=== PATIENT | female | born 1990 | race Two or more races ===

== ENCOUNTER 2024-12-14 15:35 | Emergency (ER) | payer MEDICAID, SELFPAY ==
[2024-12-14 15:36] VITALS: BMI 30.1
[2024-12-14 16:00] VITALS: BP 145/85; PULSE 85; RESP 18; TEMP 37.3; O2SAT 99
--- NOTE | 2024-12-14 16:02 | XR_ITS ---
Examination: Abdomen sonogram, Limited Date and time of exam: December 14, 2024 1614 hrs. Indications: Left upper abdominal pain beginning one week ago Technique: Real-time beavers scale transabdominal sonographic images of the upper abdomen obtained. Findings: 3 mm gallstone Gallbladder sludge, normal gallbladder wall 0.2 cm Normal common bile duct 0.2 cm Pancreatic head 2.2 cm Liver 15.4 cm no liver lesions. Normal hepatopedal portal venous flow Patent IVC Impression: Cholelithiasis, negative for cholecystitis
[2024-12-14 16:41] LABS: Collection Type, Urine Clean Catch
[2024-12-14 17:03] LABS: Bilirubin,Urine Negative (Negative); Blood,Urine Negative (Negative); Clarity,Urine Clear (Clear/Hazy); Color,Urine Lt-Yellow (Lt Yel-Yel); Glucose, Urine Negative (Negative); Ketones,Urine Negative (Negative); Leukocyte Esterase,Urine Negative (Negative); Nitrite,Urine Negative (Negative); PH,Urine 6.5 (5.0-7.0); Protein,Urine Negative (Neg - Trace); RBC,Urine 1 /hpf (0-3); Specific Gravity,Urine 1.024 (1.001-1.035); Squamous Epithelial Cell,Urine 1 /hpf (0-5); Urobilinogen,Urine Negative mg/dL (0.0-1.0); WBC,Urine < 1 /hpf (0-5)
[2024-12-14 17:14] LABS: HCG Qualitative,Urine Negative
[2024-12-14 17:29] LABS: Basophils # (Auto) 0.0 Thou/mm3 (0.0-0.2); Basophils % (Auto) 1 % (0-2.5); Eosinophils # (Auto) 0.1 Thou/mm3 (0.0-0.5); Eosinophils % (Auto) 2 % (0-10); Hematocrit 38.0 % (36.0-46.0); Hemoglobin 12.6 g/dL (12.0-16.0); Immature Granulocytes Auto 0.02 Thou/mm3 (0.00-0.00); Lymphocytes # (Auto) 2.1 Thou/mm3 (1.0-4.8); Lymphocytes % (Auto) 30 % (10-50); Mean Corpuscular HGB Conc 33.2 g/dl (31.0-37.0); Mean Corpuscular Hemoglobin 31.1 pg (25.0-35.0); Mean Corpuscular Volume 94 fL (80-100); Monocytes # (Auto) 0.4 Thou/mm3 (0.0-0.8); Monocytes % (Auto) 5 % (0-12); Neutrophils # (Auto) 4.3 Thou/mm3 (1.8-7.7); Neutrophils % (Auto) 62 % (37-80); Nucleated Red Blood Cell # 0.00 Thou/mm3 (0.00-0.00); Nucleated Red Blood Cell % 0 /100 WBC (0); Platelet Count 174 Thou/mm3 (140-440); RDW Standard Deviation 46.1 fL (36.4-46.3); Red Blood Count 4.05 Miln/mm3 (4.00-5.20); White Blood Count 6.8 Thou/mm3 (3.6-11.0)
[2024-12-14 17:45] LABS: Alanine Aminotransferase < 7 U/L (10-49); Albumin, Serum 4.3 gm/dL (3.5-5.0); Albumin/Globulin Ratio 1.9 (1.2-2.2); Alkaline Phosphatase 34 U/L (46-116); Anion Gap 10 (7-16); Aspartate Amino Transferase 10 U/L (0-34); BUN/Creatinine Ratio 13 Ratio (12-20); Bilirubin,Total 0.3 mg/dL (0.3-1.2); Blood Urea Nitrogen 10 mg/dL (9-23); Calcium 9.9 mg/dL (8.3-10.6); Calcium (Corrected) 9.9 mg/dL (8.5-10.1); Carbon Dioxide 24.2 mMol/L (20.0-31.0); Chloride 109 mMol/L (98-107); Creatinine (Component) 0.8 mg/dL (0.6-1.3); Estimated Creatinine Clearance 95.6 mL/min (>60); Globulin 2.3 gm/dL (2.3-3.5); Glucose 94 mg/dL (74-106); Lipase 33 U/L (12-53); Osmolality,Calculated 283 (275-295); Potassium 4.1 mMol/L (3.4-5.1); Sodium 143 mMol/L (136-145); Total Protein 6.6 gm/dL (5.7-8.2); eGFR > 60 See Note
--- NOTE | 2024-12-14 18:11 | EDNOTE_ITS ---
ED Abdominal Pain RME/HPI General Chief Complaint: Abdominal Pain Stated complaint: STOMACH INFLAMATION FOR 4 DAYS Time seen by provider: 12/14/24 15:39 Arrival date/time: 12/14/24 15:35 This is a case of 34-year-old female with no medical history came in in the emergency room due to upper abdominal pain on and off for 3 days associated with bloatedness nausea vomiting worsening of the symptoms this patient decided to sought consult here in the emergency room denies any constipation diarrhea or blood in her stool Limitations: no limitations Related Data Previous Rx's ?Medication ?Instructions ?Recorded famotidine 20 mg tablet 20 mg PO BID #60 tabs hydrocodone 5 mg-acetaminophen 325 1 tab PO Q6H PRN pa in #15 tabs 12/14/24 mg tablet ondansetron 4 mg disintegrating 4 mg PO Q8H PRN nausea and 12/14/24 tablet vomiting #20 tabs Allergies Allergy/AdvReac Type Severity Reaction Status Date / Time Penicillins Allergy Severe Fever Verified 12/14/24 15:39 Review of Systems Review of Systems Systems Reviewed: All systems reviewed, normal except as documented Constitutional Constitutional: Reports system reviewed and no additional complaints, except as documented, Reports as per HPI, Denies chills and Denies fever(s) Cardiovascular Cardiovascular: Reports system reviewed and no additional complaints, except as documented, Reports as per HPI, Denies chest pain and Denies dyspnea Respiratory Respiratory: Reports system reviewed and no additional complaints, except as documented, Reports as per HPI and Denies dyspnea Gastrointestinal Gastrointestinal: Reports system reviewed and no additional complaints, except as documented, Reports as per HPI, Reports abdominal pain, Denies constipation, Denies diarrhea, Reports nausea and Reports vomiting Musculoskeletal Musculoskeletal: Reports system reviewed and no additional complaints, except as documented and Reports as per HPI Neurologic Neurologic: Reports system reviewed and no additional complaints, except as documented and Reports as per HPI Past Medical History Past Medical History NEUROLOGIC: Negative Neurological Disorders or Seizures CARDIAC: Negative Cardiac Disorders, Congestive Heart Failure, Edema or Cellulitis RESPIRATORY: Negative Chronic Obstructive Pulmonary Disease (COPD), Tuberculosis or Sleep Apnea GASTROINTESTINAL: Negative Gastrointestinal Disorders or Hepatitis GENITOURINARY: Negative Genitourinary Disorders or Renal Disease REPRODUCTIVE: Positive Previous Pregnancies (x3) MUSCULOSKELETAL: Negative Musculoskeletal Disorders ENDOCRINE: Positive Endocrine Disorders; Negative Diabetes Mellitus Type 1 or Diabetes Mellitus Type 2 HEMATOLOGIC: Negative Blood Disorders OTHER HISTORY: Negative Hospitalization, Autoimmune Disease, Shingles, Falls, Blood Transfusions, Anesthesia Reactions, Chemotherapy, Radiation Therapy, MRSA, Human Immunodeficiency Virus (HIV), Chicken Pox, Measles, Mumps or Cancer Family History FAMILY HISTORY: Negative Family Psychiatric Problems, Family Respiratory Disorders, Family Cardiac Disorders, Family Gastrointestinal Problems, Family Cancer, Family Surgery or Family Anesthesia Reaction Surgical History SURGICAL: Positive Section (x1); Negative Cardiac Surgery or Pacemaker Social History SMOKING STATUS: Never smoker ED Exam General Limitations: Present no limitations General appearance: Present alert, in no apparent distress and other (Patient is awake alert oriented not in distress nontoxic looking well-hydrated well- nourished) Head Head exam: Present atraumatic, normocephalic and normal inspection Eye Eye exam: Present normal appearance, PERRL and EOMI ENT ENT exam: Present normal exam, normal oropharynx and mucous membranes moist Neck Neck exam: Present normal inspection, full ROM and trachea midline; Absent tenderness, meningismus, lymphadenopathy or thyromegaly Chest Chest inspection: Present normal inspection and symmetric chest wall rise; Absent tenderness Respiratory Respiratory exam: Present normal lung sounds bilaterally; Absent respiratory distress, wheezes, stridor, accessory muscle use or prolonged expiratory phase Cardiovascular Cardiovascular exam: Present regular rate, normal rhythm and normal heart sounds; Absent bradycardia, tachycardia, irregular rhythm, systolic murmur or diastolic murmur Abdominal Exam Abdominal exam: Present soft, tenderness (Mild tenderness in epigastric area and right upper quadrant no CVA tenderness) and normal bowel sounds; Absent distention, guarding, rebound, rigidity, diminished bowel sounds, hyperactive bowel sounds, hypoactive bowel sounds, organomegaly, psoas sign, obturator sign, Manrique's sign, Rovsing's sign, tenderness at McBurney's Point, ascites or hernia Extremities Exam Extremities exam: Present normal inspection and full ROM Back Exam Back exam: Present normal inspection and full ROM Neurological Exam Neurological exam: Present alert, oriented X3, CN II-XII intact, normal gait and reflexes normal; Absent motor sensory deficit Psychiatric Psychiatric exam: Present normal affect and normal mood Skin Skin exam: Present warm, dry, intact and normal color Course Quality Measures none Orders Category Date Time Status US gall bladder Stat Exams 12/14/24 16:02 Completed CBC Stat Lab 12/14/24 17:03 Completed Comprehensive Metabolic Panel Stat Lab 12/14/24 17:03 Completed HCG Qualitative,Urine Stat Lab 12/14/24 16:25 Completed Lipase Stat Lab 12/14/24 17:03 Completed Urinalysis Stat Lab 12/14/24 16:25 Completed Famotidine [Pepcid] Med 12/14/24 18:07 Discontinued 40 mg PO X1 ONE HYDROcodone*/APAP 5/325 [[place] 5/325] Med 12/14/24 18:07 Discontinued 1 tab PO X1 ONE Ondansetron Odt [Zofran Odt] Med 12/14/24 18:07 Discontinued 4 mg PO X1 ONE Vital Signs Vital signs: Vital Signs Temperature 99.1 F 12/14/24 16:00 Pulse Rate 85 12/14/24 16:00 Respiratory Rate 18 12/14/24 16:00 Blood Pressure 145/85 H 12/14/24 16:00 Pulse Oximetry (%) 99 12/14/24 16:00 Oxygen Delivery Method Room Air 12/14/24 16:00 Patient is afebrile not tachycardic not tachypneic BP stable not hypoxic oxygen saturation is 99% in room air Abdominal Pain MDM MDM Narrative MDM Narrative:: This is a case of 34-year-old female with no medical history came in in the emergency room due to upper abdominal pain on and off for 3 days associated with bloatedness nausea vomiting worsening of the symptoms this patient decided to sought consult here in the emergency room denies any constipation diarrhea or blood in her stool physical examination patient is awake alert oriented not in distress nontoxic looking excellent skin turgor abdominal exam is benign nonsurgical no guarding no rebound no rigidity mild tenderness on the epigastric area and right upper quadrant negative psoas negative straight or negative Rovsing's negative McBurney's negative Manrique sign negative CVA tenderness the rest of the physical examination and neurological exam is normal and unremarkable patient was given [place] Zofran and Pepcid which patient condition markedly improved patient blood test showed no leukocytosis no anemia kidney and liver function is normal no electrolyte imbalance lipase is normal urinalysis is normal ultrasound of the gallbladder suggestive of cholelithiasis patient reassessment abdominal exam is benign nonsurgical no guarding no rebound no rigidity noted is patient verbalized resolve of the abdominal no recurrence of vomiting patient will follow-up with PCP in 2 days for reevaluation and to be referred to supervisor nurse and general surgeon for further evaluation and treatment of cholelithiasis worsening symptoms or any emergent concern call 911 or go to the nearest emergency room patient was prescribed with [place] Pepcid and Zofran modified diet and keep hydrated. Patient data External records reviewed:: [facility] previous records Clinical information provided by:: patient Social determinants that could affect healthcare access:: none Patient has the following chronic illnesses:: None How is presenting disease/condition affected by chronic disease/condition?: no chronic disease Evaluation data The following diagnostics were reviewed and interpreted by me:: lab results and radiology exam(s) Lab and/or radiology exams considered but not ordered:: Reviewed Interpretation Summary: Reviewed Medications / Prescriptions Medications or Prescriptions considered but not ordered:: Given Medication administrations:: Medication Administration History Discontinued Medications Hydrocodone Bitart/Acetaminophen (Hydrocodone/Apap 5/325 Tablet) 1 tab PO X1 ONE Stop: 12/14/24 18:08 Last Admin: 12/14/24 19:00 Dose: 1 tab Documented By: BENEDICT Famotidine (Famotidine 20 Mg Tablet) 40 mg PO X1 ONE Stop: 12/14/24 18:08 Last Admin: 12/14/24 19:00 Dose: 40 mg Documented By: OA Ondansetron HCl (Ondansetron Odt 4 Mg Tabrap) 4 mg PO X1 ONE; Protocol Stop: 12/14/24 18:08 Last Admin: 12/14/24 19:00 Dose: 4 mg Documented By: OA Given Consultations Consultation(s) initiated? (list below): No Diagnosis Differential diagnosis abdominal pain: abdominal pain, gastroenteritis, pancreatitis and other (Cholelithiasis gastritis) Most likely diagnosis given after review of the tests above:: Cholelithiasis Admission Indicated Admission indicated?: not indicated Explain why admission is indicated or not indicated:: Not indicated Admission Request Was there a request for admission?: No Admission Attestation Admission request attestation: Not indicated Disposition Plan Disposition Plan: Discharge Discharge Attestation Discharge Attestation: The patient and all family members were given an opportunity to ask questions and understood the discharge instructions. Discharge instructions specifically effects, indications for sooner follow up or return to the emergency department, and the expected course of current diagnosis. Patient condition: Stable Discharge Plan Plan Patient Disposition: HOME (Self Care) Patient condition on transfer: Stable Prescriptions/Referrals Prescriptions/Med Rec: New ondansetron 4 mg tablet,disintegrating 4 mg PO Q8H PRN (Reason: nausea and vomiting) Qty: 20 0RF hydrocodone-acetaminophen 5-325 mg tablet 1 tab PO Q6H MDD max 4 tabs per day PRN (Reason: pain) Qty: 15 0RF famotidine 20 mg tablet 20 mg PO BID Qty: 60 0RF Referrals: No Primary/Family,Physician [Primary Care Provider] - In 1 week Problem List Clinical Impression: Abdominal pain, Cholelithiasis Patient/Caregiver Discharge Instructions Education Materials: Abdominal Pain, What Are Gallstones, Treating Gallstones Additional Instructions: Follow-up with your primary care physician in 2 days for reevaluation and to be referred to supervisor nurse and general surgeon for further evaluation and treatment of cholelithiasis recurrence persistent worsening symptoms or any emergent concern call 911 or go to the nearest emergency room take your medication as directed increase water intake keep hydrated avoid skipping meals avoid fatty fried high cholesterol foods avoid spicy food avoid alcohol soda or coffee pediayte Gatorade for hydration Print Language: Georgian Stand Alone Forms: Yesi Award Info., Patient Portal Info Letter PA/DEPUTY HARBORMASTER Supervising Physician PA/DEPUTY HARBORMASTER Supervising Physician: dr moralez
[2024-12-14] MEDS: FAMOTIDINE 20 MG TABLET 40 MG PO (19:00)
[2024-12-14] MEDS: HYDROcodone/APAP 5/325 TABLET 1 TAB PO (19:00)
[2024-12-14] MEDS: ONDANSETRON ODT 4 MG TABRAP PO (19:00)
== END 2024-12-14 19:07 | disposition home or self-care (01) ==
PROVIDERS: Nurse Practitioner Family; Emergency Provider Emergency Medicine
DX: K80.20 Calculus of gallbladder without cholecystitis without obstruction (principal)
CPT/HCPCS: 36415; 76705; 80053; 81001; 81025; 83690; 85025; 99283; Q0162; A9270

== ENCOUNTER → 2025-03-09 | Outpatient (CLI) | payer MEDICAID, SELFPAY ==
[2025-03-09 11:47] LABS: HCG Qualitative,Urine Negative
--- NOTE | 2025-03-09 11:57 | XR_ITS ---
Examination: CT abdomen, without intravenous contrast. CT pelvis, without intravenous contrast. CT abdomen, with intravenous contrast. CT pelvis, with intravenous contrast. 2-D sagittal coronal reconstructions. Date and time of exam: March 09, 2025, 12:48 p.m. INDICATIONS: Generalized abdominal pain beginning several months ago CTDI: vol (mGy) 16.8 DLP: (mGycm) 955 Technique: Multiple 3.0 axial images of the abdomen and pelvis without intravenous contrast, 3.0 mm slice thickness. Multiple 3.0 postcontrast images abdomen and pelvis also obtained, post intravenous injection 60 cc Isovue 370 2-D sagittal and coronal reconstructions. Low dose protocols were performed. One or more of the following dose reduction techniques were used; automated exposure control, adjustment of the mA and/or KV according to patient size, use of iterative reconstruction technique. Findings: 4 mm pulmonary nodule right midlung No visualized liver or splenic lesion Solid mass extending from the pelvis into the upper abdomen, 23 x 15 x 27 cm No gallstones No adrenal mass No hydronephrosis Subcentimeter periaortic lymph nodes Contracted urinary bladder with urinary bladder wall thickening IMPRESSION: 23 x 15 x 27 mm solid mass extending from the pelvis into the upper abdomen, differential would include massive ovarian tumor, recommend transvaginal and transabdominal pelvic sonography follow-up, recommend MRI abdomen pelvis pre and post contrast follow-up
== END | disposition home or self-care (01) ==
PROVIDERS: PCP Physician Assistant; Referring Provider Physician Assistant; Visit Provider Radiology Diagnostic Radiology
DX: R19.09 Other intra-abdominal and pelvic swelling, mass and lump (principal); Z32.00 Encounter for pregnancy test, result unknown
CPT/HCPCS: 74178; 81025; A4649; Q9967

== ENCOUNTER → 2025-03-24 | Outpatient (CLI) | payer MEDICAID, SELFPAY ==
[2025-03-22 13:48] LABS: HCG Qualitative,Urine Negative
--- NOTE | 2025-03-24 08:00 | XR_ITS ---
Examination: MRI abdomen with intravenous contrast. MRI abdomen without intravenous contrast. Date and time of exam: March 24, 2025, 0910 hours INDICATIONS: 23 x 15 x 27 mm solid mass extending from the pelvis into the upper abdomen on CT examination of the abdomen pelvis March 09, 2025 Technique: Multiple axial, sagittal and coronal sections of the abdomen obtained. Transverse images, TR 6020, TE 107. T1 weighted transverse images, TR 582, TE 9.5. T2-weighted sagittal images, TR 4000, TE 105. T2-weighted sagittal images, TR 4000, TE 5. Coronal images, TR 4210, TE 107. Axial and coronal images are obtained post 20 cc intravenous injection, gadolinium. Findings: No focal liver lesions or biliary tract dilatation No gallstones Spleen not enlarged Normal size common hepatic common bile duct No hydronephrosis Aorta normal size Partial visualization solid mass which shows diffuse enhancement arising from the pelvis extending into the abdomen, 24 x 16 x 30 cm No abdominal lymphadenopathy No ascites No hydronephrosis IMPRESSION: Partial visualization enhancing solid mass arising in the pelvis ascending into the abdomen 24 x 16 x 30 cm, differential would include solid ovarian tumor, please see the MRI pelvis report
--- NOTE | 2025-03-24 09:00 | XR_ITS ---
Examination: MRI pelvis with intravenous contrast. MRI pelvis without intravenous contrast. Date and time of exam: March 24, 2025, 0836 hours INDICATIONS: CT examination March 09, 2025 23 x 15 x 27 cm mass arising in the pelvis extending into the abdomen Technique: Multiple axial, sagittal and coronal sections of the pelvis obtained. Transverse images, TR 6020, TE 107. T1 weighted transverse images, TR 582, TE 9.5. T2-weighted sagittal images, TR 4000, TE 105. T2-weighted sagittal images, TR 4000, TE 5. Coronal images, TR 4210, TE 107. Axial and coronal images are obtained post 20 cc intravenous injection, gadolinium. Findings: Anteverted uterus Soft tissue mass with homogeneous enhancement arising in the pelvis adjacent to the fundus of the anteverted uterus extending into the abdomen, 25 x 16 x 30 cm No ascites Bilateral internal iliac lymph nodes, the largest on the left side 14 mm Urinary bladder intact Homogeneous marrow signal IMPRESSION: Large enhancing tumor mass arising in the pelvis, adjacent to the fundus of the uterus, extending into the abdomen, 25 x 16 x 30 cm Highest on the differential listhesis malignant ovarian neoplasm Bilateral internal iliac lymph nodes, the largest on the left side 14 mm Recommend transabdominal transvaginal pelvic sonography follow-up
== END | disposition home or self-care (01) ==
PROVIDERS: PCP Physician Assistant; Referring Provider Physician Assistant; Visit Provider Physician Assistant
DX: R19.09 Other intra-abdominal and pelvic swelling, mass and lump (principal); Z32.00 Encounter for pregnancy test, result unknown
CPT/HCPCS: 72197; 74183; 81025; A9577